=== PATIENT | female | born 1985 | race Caucasian/White ===

== ENCOUNTER 2021-12-30 08:50 | Emergency (ER) | payer OTHER ==
[~2021-12-30] VITALS: Ht 157.5 cm; Wt 50.0 kg
[2021-12-30 08:54] VITALS: BP 122/76
== END 2021-12-30 10:04 | disposition left against medical advice (07) ==
LOC: ER 09:08
DX: R07.81 Pleurodynia (principal); V49.49XA Driver injured in collision with other motor vehicles in traffic accident, initial encounter; Y93.89 Activity, other specified; Y92.89 Other specified places as the place of occurrence of the external cause; Y99.8 Other external cause status
CPT/HCPCS: 99283